=== PATIENT | female | born 1960 | race Two or more races ===

== ENCOUNTER 2017-12-10 19:37 | Emergency (ER) | payer SELFPAY, OTHER | END 2017-12-10 20:00 | disposition left against medical advice (07) | LOC: FTE 19:37 | DX: Z53.21 Procedure and treatment not carried out due to patient leaving prior to being seen by health care provider (principal) ==

== ENCOUNTER 2018-04-18 21:17 | Emergency (ER) | payer OTHER ==
[2018-04-18] MEDS: STERILE WATER 1L IRRIG BTL IRR (23:54)
[2018-04-19] MEDS: DIPHTH/TET/ACEL PERTUSS (ADULT) 0.5 ML VIAL IM (00:44)
== END 2018-04-19 01:07 | disposition home or self-care (01) ==
LOC: FTE 04-19 01:07
DX: S00.01XA Abrasion of scalp, initial encounter (principal); W26.8XXA Contact with other sharp object(s), not elsewhere classified, initial encounter; Y92.9 Unspecified place or not applicable; Z23 Encounter for immunization
CPT/HCPCS: 90471; 90715; 99283-25